=== PATIENT | female | born 1990 | race Hispanic/Latino ===

== ENCOUNTER 2017-12-16 19:53 | Emergency (ER) | payer SELFPAY ==
[~2017-12-16] VITALS: Ht 167.6 cm; Wt 86.6 kg
== END 2017-12-16 20:33 | disposition home or self-care (01) ==
LOC: FSED 19:53
DX: R07.89 Other chest pain (principal); B02.9 Zoster without complications
CPT/HCPCS: 99282

== ENCOUNTER 2017-12-16 20:38 | Emergency (ER) | payer SELFPAY ==
[~2017-12-16] VITALS: Ht 167.6 cm; Wt 86.6 kg
== END 2017-12-16 23:36 | disposition left against medical advice (07) ==
LOC: ER 20:38
DX: N64.4 Mastodynia (principal)
CPT/HCPCS: 99282